=== PATIENT | male | born 1960 | race Caucasian/White ===

== ENCOUNTER 2022-09-05 15:23 | Emergency (ER) | payer OTHER ==
[~2022-09-05] VITALS: Ht 177.8 cm; Wt 70.3 kg
[2022-09-05] MEDS ORDERED: VALACYCLOVIR500 MG PO (16:04)
[2022-09-05] MEDS ORDERED: PREDNISONE50 MG PO (16:05)
== END 2022-09-05 16:16 | disposition home or self-care (01) ==
LOC: ER 16:15
DX: B02.9 Zoster without complications (principal); E03.9 Hypothyroidism, unspecified; F41.9 Anxiety disorder, unspecified
CPT/HCPCS: 99282